=== PATIENT | male | born 1960 | race Caucasian/White ===

== ENCOUNTER 2017-08-15 18:22 | Observation (INO) | payer MEDICARE ==
[2017-08-15] MEDS ORDERED: hydrALAZINE 20 MG/ML VIAL ONE ×2 (19:01→22:05)
[2017-08-15] MEDS ORDERED: Ondansetron ODT 4 MG TAB ONE ×2 (19:16→21:43)
[2017-08-15 19:27] LABS: #Basophils 0.1 thou/uL (0.0-0.2); #Eosinphils 0.1 thou/uL (0.0-0.7); #Lymphocytes 2.1 thou/uL (1.20-3.40); #Monocytes 1.3 thou/uL (0.11-0.59); #Neutrophils 12.7 thou/uL (1.40-6.50); %Basophils 0.4 % (0.0-1.0); %Eosinophils 0.4 % (0.0-10.0); %Neutrophils 78.1 % (42.0-75.0); Hemoglobin 17.2 g/dL (14.0-18.0); Mean Corpuscular HGB CONC 33.4 g/dL (32.0-36.0); Mean Corpuscular Hemoglobin 31.6 pg (27.0-31.0); Mean Corpuscular Volume 94.7 fl (80.0-94.0); Mean Platelet Volume 7.1 fL (7.4-10.4); Platelet Count 290 thou/uL (130-400); RBC Distribution Width 11.9 % (11.5-14.5); Red Blood Cell (RBC) Count 5.45 mill/uL (4.70-6.10); White Blood Cell (WBC) Count 16.2 thou/uL (4.8-10.8)
[2017-08-15 19:40] LABS: ALT (SGPT) 30 U/L (8-55); AST (SGOT) 33 U/L (5-34); Albumin 4.5 g/dL (3.5-5.0); Alkaline Phosphatase 104 U/L (40-150); Anion Gap 15 mmol/L (10-20); BUN (Urea Nitrogen) 18 mg/dL (8.4-25.7); Bilirubin, Total 0.7 mg/dL (0.2-1.2); Calc. Creatinine Clearance 0 mL/min (70-130); Calcium 9.2 mg/dL (7.8-10.44); Carbon Dioxide 24 mmol/L (22-29); Chloride 103 mmol/L (98-107); Estimated GFR-MDRD 56; Globulin 3.1 g/dL (2.4-3.5); Glucose 112 mg/dL (70-105); Potassium 3.7 mmol/L (3.5-5.1); Protein, Total 7.6 g/dL (6.0-8.3); Sodium 138 mmol/L (136-145)
[2017-08-15 19:42] LABS: CKMB 3.6 ng/mL (0-6.6); Troponin I 0.026 ng/mL (< 0.028)
--- NOTE | 2017-08-15 19:51 | CT ---
CT BRAIN WITHOUT CONTRAST: INDICATIONS: History of headache. COMPARISON: 01/01/2008 FINDINGS: No acute infarct, hemorrhage, or hydrocephalus is present. The septum pellucidum and third ventricle are midline. The skull and extracranial soft tissues are within normal limits. IMPRESSION: No acute intracranial abnormality. POS: L[facility]
--- NOTE | 2017-08-15 20:42 | RAD ---
AP CHEST: INDICATIONS: Hypertension. Altered mental status. FINDINGS: There is mild right basilar air space opacity, which is nonspecific and may reflect subsegmental atel ectasis. The left lung is clear. The cardiomediastinal silhouette is within normal limits. No acut e osseous abnormality is evident. IMPRESSION: Right basilar air space opacity may reflect subsegmental volume loss or a small developing pneumonia. Recommend correlation. POS: [facility]
[2017-08-15] MEDS ORDERED: Ibuprofen 800 MG TAB ONE (21:00)
[2017-08-15] MEDS ORDERED: cefTRIAXone\\ROCEPHIN 500 MG VIAL ONE (21:41)
[2017-08-15] MEDS ORDERED: Acetaminophen 500 MG TAB ONE (21:50)
[2017-08-15] MEDS ORDERED: cefTRIAXone\\ROCEPHIN 2 GM in Sodium Chloride 0.9% 100 ML IVPB SCH (22:15)
[2017-08-15 23:20] LABS: Lactic Acid 1.4 mmol/L (0.5-2.2)
[2017-08-15] MEDS ORDERED: Amlodipine 10 MG TAB PO SCH (23:46)
[2017-08-15] MEDS ORDERED: Enoxaparin Sodium 40 MG/0.4 ML SYRINGE SC SCH (23:46)
[2017-08-15] MEDS ORDERED: Acetaminophen 325 MG TAB PO PRN (23:46)
[2017-08-15] MEDS ORDERED: Carvedilol 6.25 MG TAB PO SCH (23:46)
[2017-08-15] MEDS ORDERED: Ondansetron HCl/PF 4 MG/2 ML Vial IVP PRN (23:46)
[2017-08-15] MEDS ORDERED: Ondansetron ODT 4 MG TAB PO PRN (23:46)
[2017-08-15] MEDS ORDERED: hydrALAZINE 20 MG/ML VIAL SLOW IVP PRN (23:46)
[2017-08-16 01:16] LABS: CKMB 3.2 ng/mL (0-6.6); Troponin I 0.047 ng/mL (< 0.028)
[2017-08-16 02:26] LABS: Medtox Reader # READER 4
[2017-08-16 02:27] LABS: Amphetamine Not Detected (NotDetected); Barbiturates Screen Not Detected (NotDetected); Benzodiazepine Screen Not Detected (NotDetected); Cocaine Metabolite Screen Not Detected (NotDetected); Medtox Control Line Valid? VALID (VALID); Methadone Not Detected (NotDetected); Methamphetamine Not Detected (NotDetected); Opiate Screen Detected (NotDetected); Oxycodone Screen Not Detected (NotDetected); Phencyclidine (PCP) Not Detected (NotDetected); THC/Cannabinoid Screen Not Detected (NotDetected); Tricyclic Screen Not Detected (NotDetected)
[2017-08-16] MEDS: HYDROcodone/Acetaminophen 5/325 mg Tablet PO PRN ×3 (03:07→17:08)
--- NOTE | 2017-08-16 05:36 | HP ---
PRIMARY CARE PHYSICIAN: Dr. Darwin Jha TIME OF SERVICE: 0100 DATE OF ADMISSION: 08/16/2012 CHIEF COMPLAINT: Headache and elevated blood pressure. HISTORY OF PRESENT ILLNESS: Mr. Villanueva is a 57-year-old gentleman with a history of seizure disorder, hypertension, obesity, PTSD, schizoaffective disorder and bipolar disorder who does have a history of hypertension. He used to be on antihypertensives, but after losing 50-60 pounds, he was able to be taken off his medications. The patient had a headache that he describes as a stabbing sensation in the crown of his head and rad iating to the retroorbital region. It was worse today than it has been over the last week and a half to 2 weeks, and wanted to recheck his blood pressure, it was found to be 193/139. He then went to [facility] where he was seen and evaluated and given medicines. He was sent h ome with a prescription for hydrochlorothiazide, which he did fill and take once. The headache did c ome back so he came to our Emergency Department for a second opinion. He does describe some dyspnea on exertion and some nausea, but no vomiting. No chest pain. No fevers or chills. No diarrhea or c onstipation. In our ER, he met sepsis criteria. He was given vancomycin and Rocephin for his sepsis of unknown so urce, he was given hydralazine intravenously x2 and a 30 mL per kilo bolus for the sepsis. He was gi kristofer some Zofran for nausea. We were called for admission. The patient was accepted and seen on the floor, on arrival, he jumped in the shower when he was there for almost an hour. He was able to come out and was feeling better. No other current complaints. PAST MEDICAL HISTORY: 1. Seizure disorder. 2. Hypertension. 3. Obesity. 4. Post-traumatic stress disorder. 5. Schizoaffective disorder. 6. Bipolar disorder. PAST SURGICAL HISTORY: None. HOME MEDICATIONS: Hydrochlorothiazide 25 mg p.o. daily started today. ALLERGIES: NKDA. FAMILY HISTORY: Negative for clotting or bleeding disorder. No immune dysfunction. SOCIAL HISTORY: Significant for marijuana in the past, but none currently. No tobacco, social alcoh ol. 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 REVIEW OF SYSTEMS: A 10-point review of systems was performed and negative for all systems except as stated as per HPI. PHYSICAL EXAMINATION: VITAL SIGNS: Temperature 97.8, pulse 91, blood pressure on arrival 175/116, respiratory rate 17, sat ting 94% on room air. GENERAL: He is awake. He is alert. He is oriented x3, well-developed, well-nourished, white male w ho appears in no acute distress. HEENT: Normocephalic, atraumatic. His pupils are equal, round, reactive to light bilaterally, mucos a membranes moist. No visible lesion or thrush. NECK: Supple. There is no lymphadenopathy, no JVD, no thyromegaly. There are no carotid upstrokes. I do not appreciate bruits. CHEST: Lungs are clear. He has good symmetrical chest excursion with good air movement. No wheezes , no rales, no rhonchi. CARDIOVASCULAR: He has a normal cardiac and regular. Normal S1 and S2. No S3 or S4. No audible mu rmurs. ABDOMEN: Soft, it is nontender, nondistended, no masses, no organomegaly. No pulsatile masses. EXTREMITIES: No cyanosis, no clubbing, no edema, 2+ dorsalis pedis, posterior tibial pulses bounding . SKIN: Warm, moist and well perfused. He has no other rash or lesions. MUSCULOSKELETAL: Normal to inspection. Large joints appear normal, there is no inflammation, no pal pable effusions. NEUROLOGIC: Cranial nerves II-XII are grossly intact. He has no focal neurologic deficits, normal s peech pattern, he has 5/5 strength in all 4 extremities. LABORATORY DATA: Sodium 138, potassium 3.7, chloride 103, bicarbonate 24, BUN 18, creatinine 1.31 up from 0.93 in the past, glucose of 112, and calcium 9.2. Liver functions are completely within normal limits. CBC shows a white count of 16.2 with a normal differential, hemoglobin 17.2, hematocrit 51.5, platele t count is 290,000. His H/H are from previous values. CK-MB was normal at 3.6, lactic acid initiall y 3.5 with a repeat of 1.4 and troponin I was 0.026. Chest x-ray showed no acute cardiopulmonary dis ease. ASSESSMENT AND PLAN: 1. Hypertensive urgency: The patient does have a headache secondary. I have started him on the aml odipine and Coreg. He has p.r.n. hydralazine. We will treat him for blood pressure less than 150. 2. Headache: Retroorbital secondary to elevated blood pressure. 3. Hypertension, essential as above. 4. Seizure disorder, not on any antiepileptic. 5. Obesity: Patient states he has gained 50-60 pounds. 6. Post-traumatic stress disorder. 7. Schizoaffective disorder. 8. Bipolar disorder. I will continue the patient on amlodipine and Coreg today. We will follow his blood pressure. The p atient will be placed in observation. I suspect he may be able to go home later today if his blood p ressure remains normal.
[2017-08-16 07:03] LABS: #Lymphocytes 1.2 thou/uL (1.20-3.40); #Monocytes 1.3 thou/uL (0.11-0.59); #Neutrophils 9.3 thou/uL (1.40-6.50); %Basophils 0.2 % (0.0-1.0); %Eosinophils 0.4 % (0.0-10.0); %Lymphocytes 10.2 % (21.0-51.0); %Monocytes 10.6 % (0.0-10.0); %Neutrophils 78.6 % (42.0-75.0); Hemoglobin 15.8 g/dL (14.0-18.0); Mean Corpuscular HGB CONC 33.9 g/dL (32.0-36.0); Mean Corpuscular Volume 97.5 fl (80.0-94.0); Mean Platelet Volume 7.4 fL (7.4-10.4); Platelet Count 254 thou/uL (130-400); RBC Distribution Width 11.9 % (11.5-14.5); White Blood Cell (WBC) Count 11.8 thou/uL (4.8-10.8)
[2017-08-16 07:14] LABS: Anion Gap 13 mmol/L (10-20); BUN (Urea Nitrogen) 18 mg/dL (8.4-25.7); Calc. Creatinine Clearance 86 mL/min (70-130); Calcium 8.2 mg/dL (7.8-10.44); Carbon Dioxide 23 mmol/L (22-29); Chloride 105 mmol/L (98-107); Estimated GFR-MDRD 60; Glucose 103 mg/dL (70-105); Potassium 3.2 mmol/L (3.5-5.1); Sodium 138 mmol/L (136-145)
[2017-08-16 07:42] LABS: CKMB 4.3 ng/mL (0-6.6); Troponin I 0.156 ng/mL (< 0.028)
[2017-08-16] MEDS: Carvedilol 6.25 MG TAB PO SCH ×2 (09:27→17:07)
[2017-08-16] MEDS: Amlodipine 10 MG TAB PO SCH (09:28)
[2017-08-16] MEDS: Famotidine 20 MG TAB PO SCH ×2 (11:31→21:14)
--- NOTE | 2017-08-16 17:55 | PDOC.EVN ---
Event Note - Event Note Event Note: Pt with persistent BHATT and neck pain. BP trend erratic, will increase Coreg 12.5mg BID, continue Norvasc 10mg daily. May need additional titration of BP regimen on outpt basis. Trial Flexeril 10mg BID.
[2017-08-16] MEDS ORDERED: Cyclobenzaprine 10 MG TAB PO SCH (18:00)
[2017-08-16] MEDS ORDERED: Carvedilol 6.25 MG TAB PO SCH (19:00)
[2017-08-17 03:31] VITALS: BMI 29.9
[2017-08-17] MEDS ORDERED: Carvedilol 6.25 MG TAB PO SCH (08:00)
[2017-08-17 08:14] VITALS: BP 140/93; TEMP 97.7
[2017-08-17] MEDS: Famotidine 20 MG TAB PO SCH (08:16)
[2017-08-17] MEDS: Amlodipine 10 MG TAB PO SCH (08:16)
--- NOTE | 2017-08-17 08:21 | DIS ---
DATE OF ADMISSION: 08/15/2017 DATE OF DISCHARGE: 08/17/2017 DISCHARGE DIAGNOSES: 1. Hypertensive urgency, resolved. 2. Acute kidney injury, multifactorial, improved. 3. Tension headache secondary to #1, resolved. 4. Elevated troponin I secondary to demand ischemia in the context of hypertensive urgency. CONSULTATIONS: None. PERTINENT LAB AND X-RAY FINDINGS: Potassium ranged between 3.2-3.7, creatinine ranged between 1.24-1 .31 with estimated GFR ranging between 56-60, lactic acid level ranged between 1.4-3.5, magnesium 2.0 , calcium 8.2. Troponin I ranged between 0.026-0.156. CBC showed a white blood cell count ranging b etween 11.8-16.2. Blood cultures x2 from 08/15/2017 showed no growth to date. Urine culture dated 0 08/16/2017 showed no growth at [address] of the brain without contrast dated 08/15/2017 showed no acute intracranial process. Portable chest x-ray dated 08/15/2017 showed subsegmental volume loss in the right basilar region. HOSPITAL COURSE: The patient was observed on the telemetry unit after initially presenting with head ache associated with elevated blood pressures with initial systolics in the 170, diastolics in the 11 0s. The patient was placed on IV hydralazine as well as initiated on Coreg and Norvasc after previou sly being prescribed hydrochlorothiazide 25 mg daily. The patient was treated for hypertensive urgen cy as stated previously and given general supportive measures. Overall, blood pressure trend improve d with initiation of appropriate antihypertensive regimen with recommendations for additional titrati on of his regimen on an ongoing basis after discharge. The patient was noted with several metabolic derangements including mild acute kidney injury, at which point hydrochlorothiazide was discontinued and patient was given intravenous normal saline. Overall, renal function stabilized with volume replacement and avoiding nephrotoxic agents. The ney ent was also initially treated for suspected infectious process after initial lactic acid level was n oted elevated with leukocytosis. No specific focal or localizing infectious process was identified a t which an initial antibiotics given in the emergency room were not continued. The patient was treat ed with Flexeril for muscle spasms in the cervical spine region with overall improvement in headache and neck pain. Overall, the patient did remain clinically stable throughout the hospital course. Te lemetry monitoring showed sinus mechanism without evidence of acute arrhythmia or dysrhythmia. Recom mendations are for outpatient cardiac stress testing after stabilization of hypertension. I have exa mined the patient at the time of discharge and discussed discharge instructions and follow up at [facility] point the patient verbalizes agreement and understanding. The patient overall clinically stable an d ready for discharge on 08/17/2017. DISCHARGE MEDICATIONS: 1. Amlodipine 10 mg 1 tab p.o. daily. 2. Coreg 12.5 mg 1 tab p.o. b.i.d. 3. Flexeril 10 mg p.o. at bedtime p.r.n. FOLLOWUP: The patient will follow up with Dr. Jha within 7 days of discharge. CONDITION ON DISCHARGE: Stable. ACTIVITY: Ad jone. DIET: Heart healthy. CODE STATUS: Full. DISPOSITION: Home on 08/17/2017.
[2017-08-17] MEDS ORDERED: Cyclobenzaprine 10 MG TAB PO SCH (09:00)
== END 2017-08-17 09:06 | disposition home or self-care (01) ==
LOC: ERS 18:22 → 2SW 21:15
PROVIDERS: ADMIT Internal Medicine Infectious Disease; ATTEND Internal Medicine Infectious Disease
DX: I16.0 Hypertensive urgency (principal); I10 Essential (primary) hypertension; G40.909 Epilepsy, unspecified, not intractable, without status epilepticus; N17.9 Acute kidney failure, unspecified; I24.8 Other forms of acute ischemic heart disease; F43.10 Post-traumatic stress disorder, unspecified; F25.9 Schizoaffective disorder, unspecified; F31.9 Bipolar disorder, unspecified; E66.9 Obesity, unspecified; Z68.29 Body mass index [BMI] 29.0-29.9, adult; Z79.899 Other long term (current) drug therapy
CPT/HCPCS: 70450; 71045; 80048; 80053; 80306; 82553 ×3; 83605; 83735; 84484 ×3; 85025 ×2; 87040; 87086; 93005; 96365; 96368; 96372; 96375; 96376 ×2; 99285; G0378; 36415; J0360; J0696; J1650; J3370; J7050; Q0162

== ENCOUNTER 2017-08-18 10:16 | Emergency (ER) | payer MEDICARE, MEDICAID | END 2017-08-18 11:29 | disposition home or self-care (01) | LOC: ERS 10:16 | DX: I10 Essential (primary) hypertension (principal); F43.10 Post-traumatic stress disorder, unspecified; F25.9 Schizoaffective disorder, unspecified; F31.9 Bipolar disorder, unspecified; Z79.899 Other long term (current) drug therapy ==

== ENCOUNTER 2018-07-14 15:37 | Emergency (ER) | payer MEDICARE, MEDICAID ==
--- NOTE | 2018-07-14 16:25 | RAD ---
EXAM: CHEST ONE VIEW: 07/14/18 HISTORY: Fatigue with hypertension for one week. COMPARISON: 08/15/17. FINDINGS: Heart size is within normal limits. Lungs appear clear. No confluent pneumonia, overt edema, or pleur al effusion. Prominent thoracic spine disc osteophytosis. IMPRESSION: No significant acute intrathoracic disease. Atherosclerosis of the aorta. Stable from prior study. POS: [facility]
--- NOTE | 2018-07-14 16:35 | CT ---
BRAIN CT WITHOUT IV CONTRAST 07/14/18 HISTORY: Fatigue secondary to hypertension for one week. COMPARISON: 08/15/17. FINDINGS: No focal mass or midline shift. No intra or extra-axial hemorrhage. Sinuses and mastoids are clear. IMPRESSION: No acute intracranial process. No mass or bleed. Stable from 08/15/17. POS: [facility]
[2018-07-14] MEDS ORDERED: cloNIDine 0.1 MG TAB ONE (16:45)
[2018-07-14 16:49] LABS: #Basophils 0.1 thou/uL (0.0-0.2); #Eosinphils 0.2 thou/uL (0.0-0.7); #Lymphocytes 2.2 thou/uL (1.20-3.40); #Monocytes 1.1 thou/uL (0.11-0.59); #Neutrophils 6.9 thou/uL (1.40-6.50); %Basophils 0.7 % (0.0-1.0); %Eosinophils 2.2 % (0.0-10.0); %Lymphocytes 20.9 % (21.0-51.0); %Monocytes 10.5 % (0.0-10.0); %Neutrophils 65.7 % (42.0-75.0); Hemoglobin 15.4 g/dL (14.0-18.0); Mean Corpuscular HGB CONC 32.8 g/dL (32.0-36.0); Mean Corpuscular Hemoglobin 32.5 pg (27.0-31.0); Mean Corpuscular Volume 99.2 fL (78.0-98.0); Mean Platelet Volume 7.6 fL (7.4-10.4); Platelet Count 248 thou/uL (130-400); RBC Distribution Width 11.7 % (11.5-14.5); Red Blood Cell (RBC) Count 4.73 mill/uL (4.70-6.10); White Blood Cell (WBC) Count 10.6 thou/uL (4.8-10.8)
[2018-07-14 17:15] LABS: ALT (SGPT) 21 U/L (8-55); AST (SGOT) 28 U/L (5-34); Albumin 3.9 g/dL (3.5-5.0); Alkaline Phosphatase 80 U/L (40-150); Anion Gap 12 mmol/L (10-20); BUN (Urea Nitrogen) 22 mg/dL (8.4-25.7); Bilirubin, Total 0.3 mg/dL (0.2-1.2); Calc. Creatinine Clearance 0 mL/min (70-130); Calcium 8.8 mg/dL (7.8-10.44); Carbon Dioxide 24 mmol/L (22-29); Chloride 107 mmol/L (98-107); Estimated GFR-MDRD 70; Globulin 2.7 g/dL (2.4-3.5); Glucose 87 mg/dL (70-105); Potassium 3.8 mmol/L (3.5-5.1); Protein, Total 6.6 g/dL (6.0-8.3); Sodium 139 mmol/L (136-145)
[2018-07-14] MEDS ORDERED: hydrALAZINE 20 MG/ML VIAL ONE (17:36)
[2018-07-14 18:03] LABS: Bilirubin Negative (Negative); Blood, Urine Negative (Negative); Clarity CLEAR (Clear); Glucose, Urine (Dipstick) Negative (Negative); Leukocyte Negative (Negative); Nitrite Negative (Negative); Protein, Urine (Dipstick) Negative (Neg-Trace); Specific Gravity, Urine 1.016 (1.002-1.036)
[2018-07-14] MEDS ORDERED: Metoprolol Tartrate 5 MG/5 ML VIAL ONE (18:49)
[2018-07-14] MEDS ORDERED: Lorazepam 2 MG/ML VIAL ONE (20:01)
[2018-07-14] MEDS ORDERED: Metoprolol Tartrate 50 MG TAB ONE (20:04)
== END 2018-07-14 20:37 | disposition home or self-care (01) ==
LOC: ERS 15:37
DX: I10 Essential (primary) hypertension (principal); R51 Headache; F43.10 Post-traumatic stress disorder, unspecified; F25.9 Schizoaffective disorder, unspecified; F31.9 Bipolar disorder, unspecified
CPT/HCPCS: 70450; 71045; 80053; 81003; 84484; 85025; 93005; 96374; 96375; J0360; J2060

== ENCOUNTER 2019-01-12 11:41 | Emergency (ER) | payer MEDICARE, MEDICAID ==
[2019-01-12 12:12] LABS: #Basophils 0.1 thou/uL (0.0-0.2); #Eosinphils 0.3 thou/uL (0.0-0.7); #Lymphocytes 2.2 thou/uL (1.20-3.40); #Monocytes 0.8 thou/uL (0.11-0.59); #Neutrophils 5.9 thou/uL (1.40-6.50); %Basophils 0.8 % (0.0-1.0); %Eosinophils 3.6 % (0.0-10.0); %Lymphocytes 23.6 % (21.0-51.0); %Monocytes 8.6 % (0.0-10.0); %Neutrophils 63.5 % (42.0-75.0); Hemoglobin 16.9 g/dL (14.0-18.0); Mean Corpuscular HGB CONC 33.9 g/dL (32.0-36.0); Mean Corpuscular Hemoglobin 31.4 pg (27.0-31.0); Mean Corpuscular Volume 92.6 fL (78.0-98.0); Mean Platelet Volume 7.6 fL (7.4-10.4); Platelet Count 243 thou/uL (130-400); RBC Distribution Width 11.5 % (11.5-14.5); Red Blood Cell (RBC) Count 5.38 mill/uL (4.70-6.10); White Blood Cell (WBC) Count 9.2 thou/uL (4.8-10.8)
[2019-01-12 12:39] LABS: ALT (SGPT) 23 U/L (8-55); AST (SGOT) 23 U/L (5-34); Albumin 4.6 g/dL (3.5-5.0); Alkaline Phosphatase 99 U/L (40-150); Anion Gap 13 mmol/L (10-20); BUN (Urea Nitrogen) 24 mg/dL (8.4-25.7); Bilirubin, Total 0.5 mg/dL (0.2-1.2); CK (CPK) 125 U/L (30-200); Calc. Creatinine Clearance 0 mL/min (70-130); Carbon Dioxide 25 mmol/L (22-29); Chloride 106 mmol/L (98-107); Estimated GFR-MDRD 63; Globulin 2.6 g/dL (2.4-3.5); Glucose 105 mg/dL (70-105); Potassium 3.9 mmol/L (3.5-5.1); Protein, Total 7.2 g/dL (6.0-8.3); Sodium 140 mmol/L (136-145)
[2019-01-12] MEDS ORDERED: Amlodipine 5 MG TAB ONE (12:46)
[2019-01-12] MEDS ORDERED: Acetaminophen 500 MG TAB ONE (12:51)
[2019-01-12] MEDS ORDERED: cloNIDine 0.1 MG TAB ONE (14:25)
== END 2019-01-12 15:05 | disposition home or self-care (01) ==
LOC: ERS 11:41
DX: I10 Essential (primary) hypertension (principal); F25.9 Schizoaffective disorder, unspecified; F43.10 Post-traumatic stress disorder, unspecified; F31.9 Bipolar disorder, unspecified; Z79.899 Other long term (current) drug therapy
CPT/HCPCS: 36415; 80053; 82550; 84484; 85025; 93005